=== PATIENT | female | born 1955 | race Caucasian/White ===

== ENCOUNTER → 2019-02-23 | Outpatient (CLI) | payer BC | LOC: FIMAGING 08:52 | PROVIDERS: ATTEND Internal Medicine | DX: Z12.31 Encounter for screening mammogram for malignant neoplasm of breast (principal) ==

== ENCOUNTER 2019-04-08 05:56 | Day surgery (SDC) | payer BC | END 2019-04-08 12:16 | disposition home or self-care (01) | LOC: FSGY 05:56 ==